=== PATIENT | male | born 1995 | race Caucasian/White ===

== ENCOUNTER 2021-03-14 12:48 | Emergency (ER) | payer OTHER ==
[~2021-03-14] VITALS: Ht 175.3 cm; Wt 60.8 kg
[2021-03-14 12:48] VITALS: BP 128/73
[2021-03-14] MEDS ORDERED: DOCU-141 PO (13:43)
[2021-03-14] MEDS ORDERED: HYDR30CR79 TP (13:43)
--- NOTE | 2021-03-14 13:49 | NUR ---
Patient discharged to home in stable condition. Written and verbal after care instructions given. Patient verbalizes understanding of instruction. Pt ambulatory with a steady gait
[2021-03-16] MEDS ORDERED: METRONIDAZOLE 500MG/ NS 100ML 100 ML IV ONE (03:30)
[2021-03-16] MEDS ORDERED: CIPROFLOXACIN IV RTU 200 ML IV ONE (03:30)
[2021-03-16] MEDS ORDERED: MORPHINE SULFATE INJ 4 MG/ML DISP.SYRIN ONE (03:31)
== END 2021-03-14 13:50 | disposition home or self-care (01) ==
LOC: ER 13:01
DX: K64.9 Unspecified hemorrhoids (principal)
CPT/HCPCS: J0744; J2270

== ENCOUNTER 2021-03-16 01:22 | Inpatient (IN) | payer OTHER ==
[~2021-03-16] VITALS: Ht 175.3 cm; Wt 59.0 kg
[~2021-03-16 01:22] MED LIST: DOCU-141 PO; HYDR30CR79 TP
--- NOTE | 2021-03-16 01:38 | NUR ---
PT BIBS FOR C/O RECTAL PAIN. WAS SEEN AT [facility] ER FOR HEMORRHOID RECENTLY +LOWER ABD PAIN. PT RATES PAIN 8/10 WHEN BEINIG TOUCHED AROUND HEMORRHOID AREA. PT ALERT ASYMTPAOMTIC AND ORIENTED X3.
--- NOTE | 2021-03-16 01:40 | NUR ---
BLOOD TAKEN AND SENT TO LAB.
[2021-03-16] MEDS ORDERED: MORPHINE SULFATE INJ 4 MG/ML DISP.SYRIN ONE (01:46)
[2021-03-16 01:55] LABS: BASOPHILS % (AUTO) 0.3 % (0.0-2.0); EOSINOPHILS % (AUTO) 0.6 % (0.0-6.0); HEMATOCRIT 38 % (39-51); HEMOGLOBIN 12.4 g/dL (13.5-17.5); LYMPHOCYTES # (AUTO) 1.8 K/uL (0.8-4.8); LYMPHOCYTES % (AUTO) 16.1 % (20.0-44.0); MEAN CORPUSCULAR HGB CONC 33 g/dl (31.0-36.0); MEAN CORPUSCULAR VOLUME 80 fL (80-96); MONOCYTES # (AUTO) 0.8 K/uL (0.1-1.30); MONOCYTES % (AUTO) 6.8 % (2.0-12.0); NEUTROPHILS # (AUTO) 8.5 K/uL (1.8-8.9); NEUTROPHILS % (AUTO) 76.2 % (43.0-81.0); PLATELET COUNT (AUTO) 271 K/uL (150-450); RED BLOOD CELL COUNT(AUTO) 4.71 MIL/uL (4.5-6.0); WHITE BLOOD COUNT (AUTO) 11.2 K/uL (4.3-11.0)
[2021-03-16] MEDS ORDERED: IOHEXOL-300 100 ML VIAL IV ONE (01:58)
[2021-03-16] MEDS ORDERED: IV NS 0.9% 250 ML IV ONE (01:59)
[2021-03-16] MEDS ORDERED: MORPHINE SULFATE INJ 2 MG/ML DISP.SYRIN IV ONE ×2 (02:00→03:30)
[2021-03-16 02:09] LABS: CALCIUM, SERUM 9.2 mg/dL (8.5-10.1); CREATININE 1.2 mg/dL (0.6-1.3); POTASSIUM 3.9 mmol/L (3.5-5.1)
--- NOTE | 2021-03-16 02:19 | NUR ---
taken to radiology
--- NOTE | 2021-03-16 02:20 | NUR ---
Chun wagoner in [facility] - 03/16/21 at 0220 by REGI pt going to ct.
--- NOTE | 2021-03-16 02:31 | NUR ---
PATIENT RETURNED FROM CT
[2021-03-16] MEDS ORDERED: FLAGYL/NS RTU 500 MG/100 ML PIGGYBACK IV ONE (03:30)
--- NOTE | 2021-03-16 03:37 | NUR ---
MRSA SWAB COLLECTED AND SENT TO LAB. PATIENT'S BELONGINGS LIST DONE.
[2021-03-16] MEDS: CIPROFLOXACIN IV RTU 400 MG in PREMIX 1 EA IV SCH ×2 (04:39→04:40)
[2021-03-16] MEDS ORDERED: ONDANSETRON HCL/PF 4 MG/2 ML VIAL IVP PRN (07:00)
[2021-03-16] MEDS ORDERED: ACETAMINOPHEN 325 MG TABLET PO PRN (07:00)
[2021-03-16] MEDS ORDERED: MORPHINE SULFATE INJ 2 MG/ML DISP.SYRIN IV PRN (07:00)
--- NOTE | 2021-03-16 07:47 | NUR ---
NURSING SUP GAVE 314.
--- NOTE | 2021-03-16 07:48 | NUR ---
REPORT GIVEN TO JOSE A BERRY FOR MONIQUE
[2021-03-16 08:00] VITALS: BP 118/64
--- NOTE | 2021-03-16 08:12 | NUR ---
m/s seam finisher: notes c/o 10/10 rectal pain, medicated with morphine 4mg ivp by rn. instructed to call for assistance. will continue to monitor.
--- NOTE | 2021-03-16 08:30 | NUR ---
m/s name plate stamper: notes dr. anton notified and made aware re: positive covid test 14 days ago with negative rapid test today and 4 days ago with no new order. pt is asymptomatic. cn aware. will continue to monitor.
--- NOTE | 2021-03-16 08:42 | NUR ---
m/s nurse's assistant: notes pt verbalized relief of pain. no s/s or resp. distress noted. will continue to monitor.
--- NOTE | 2021-03-16 08:54 | NUR ---
m/s ink grinder: notes arpi (infection control) notified and made aware re: positive covid test 14 days ago with negative rapid test today and 4 days ago.
[2021-03-16] MEDS: DOCUSATE SODIUM 100 MG CAPSULE PO SCH ×2 (09:05→17:19)
[2021-03-16] MEDS: PANTOPRAZOLE 40 MG TABLET.DR PO SCH (09:05)
--- NOTE | 2021-03-16 10:25 | NUR ---
m/s ticket machine operator: md visit dr. anton at bedside with verbal order to increase his morphine to 4mg ivp q 2 hours as needed. order read back and carried out. dr. anton notified dr. hernandez (surgeon). pt aware of plan of care.
[2021-03-16] MEDS: MORPHINE SULFATE INJ 2 MG/ML DISP.SYRIN IV PRN ×4 (10:44→19:38)
--- NOTE | 2021-03-16 10:44 | NUR ---
m/s stores assistant: notes c/o 10/10 rectal pain, medicated with morphine 4mg ivp with zofran 4mg ivp by rn. instructed to call for assistance. will continue to monitor.
--- NOTE | 2021-03-16 11:14 | NUR ---
m/s water well driller: notes pt dozing on and off. no s/s of resp. distress noted. will continue to monitor.
[2021-03-16] MEDS: PIPERACILLIN /TAZOBACTAM 3.375 G in IV D5W 50 ML IV SCH ×2 (11:49→18:18)
--- NOTE | 2021-03-16 12:38 | NUR ---
m/s refueling ramp attendant: notes c/o 10/10 rectal pain, medicated with morphine 4mg ivp. instructed to call for assistance. will continue to monitor.
--- NOTE | 2021-03-16 14:08 | NUR ---
m/s concrete pipe maker: notes in bed with eyes close. resp. even and unlabored. no s/s of resp. distress noted. will continue to monitor.
--- NOTE | 2021-03-16 15:00 | NUR ---
m/s make up arranger: surgeon consult seen and examined by sana (keon) at this time. will continue to monitor.
--- NOTE | 2021-03-16 15:44 | NUR ---
m/s splitting machine operator helper: notes consent obtained from pt re: Incision and drainage of perianal abscess to be done by dr. maloney at bedside. pt verbalized understanding.
[2021-03-16 16:00] VITALS: BP 130/73
[2021-03-16] MEDS ORDERED: LIDOCAINE 2%-EPI 1:100,000 30 ML VIAL TP ONE (16:00)
--- NOTE | 2021-03-16 16:52 | NUR ---
m/s quality systems manager: notes c/o 10/10 rectal pain, medicated with morphine 4mg ivp. instructed to call for assistance. will continue to monitor.
--- NOTE | 2021-03-16 17:22 | NUR ---
m/s can maker: notes verbalized relief of rectal pain, awaiting for surgeon to do i & d. supplies at bedside.
--- NOTE | 2021-03-16 19:00 | NUR ---
m/s grinding room supervisor: notes report given to rebekah (james) for continuity of care.
[2021-03-16 20:00] VITALS: BP 111/56
[2021-03-16] MEDS ORDERED: HYDROMORPHONE 1 MG/1 ML DISP.SYRIN IV ONE (20:00)
[2021-03-16] MEDS ORDERED: KETOROLAC TROMETHAMINE INJ 30 MG/ML VIAL IV ONE (20:00)
[2021-03-16] MEDS ORDERED: KETOROLAC TROMETHAMINE INJ 30 MG/ML VIAL IM ONE (20:00)
--- NOTE | 2021-03-16 20:10 | NUR ---
Patient in his bed alert and orientated X4 Speech clear aware of having the IND of his perirectal abcess done at the bedside by MD White consent is signed MD White at the bedside explainning what he is going to do patient turned to his right side pt prepped by the MD Medicated with Dilaudid 1 mg at 2009 medicated with Toradol 30 mg Iv per Md White pulse ox on the patient sats98 - 100% patient wide awake and talking laughing with the MD Patient tolartaed the procedure w/o complication noted MD WHITE packed the wound and tapped to the buttock spoke to the patients about wound care when he goes home. will monitor the patient patient was injected with LIDOCAINE at the abcess site
[2021-03-16 22:21] VITALS: BP 111/56
[2021-03-17] MEDS: PIPERACILLIN /TAZOBACTAM 3.375 G in IV D5W 50 ML IV SCH ×4 (00:31→18:10)
[2021-03-17 06:09] LABS: EOSINOPHILS % (AUTO) 0.3 % (0.0-6.0); HEMATOCRIT 35 % (39-51); HEMOGLOBIN 11.4 g/dL (13.5-17.5); LYMPHOCYTES # (AUTO) 1.6 K/uL (0.8-4.8); LYMPHOCYTES % (AUTO) 19.8 % (20.0-44.0); MEAN CORPUSCULAR HGB CONC 33 g/dl (31.0-36.0); MEAN CORPUSCULAR VOLUME 80 fL (80-96); MONOCYTES # (AUTO) 1.4 K/uL (0.1-1.30); MONOCYTES % (AUTO) 18.3 % (2.0-12.0); NEUTROPHILS # (AUTO) 4.9 K/uL (1.8-8.9); NEUTROPHILS % (AUTO) 61.6 % (43.0-81.0); PLATELET COUNT (AUTO) 222 K/uL (150-450); RED BLOOD CELL COUNT(AUTO) 4.32 MIL/uL (4.5-6.0); WHITE BLOOD COUNT (AUTO) 7.9 K/uL (4.3-11.0)
--- NOTE | 2021-03-17 06:21 | NUR ---
S/P IND rectal abcess last night at 1999 by Jd QUIROS rectal dressing CDI Patient was given morphine 30 minutes prior then followed with dilaudid and toradol 3omg toward the end of the procedure tolerated procedure well small amount bleeding done at the bedside. slept thru the night not asking to be medicatd for pain dressing remains dry and intact this AM Antibiotic infused w/ problem
[2021-03-17 06:43] LABS: CREATININE 1.2 mg/dL (0.6-1.3); MAGNESIUM 1.9 mg/dL (1.8-2.4); PHOSPHORUS 4.3 mg/dL (2.5-4.9); POTASSIUM 3.9 mmol/L (3.5-5.1)
[2021-03-17 08:00] VITALS: BP 99/53
--- NOTE | 2021-03-17 08:00 | NUR ---
RECEIVED PT. IN AM ALERT AND ORIENTED X4,NO COMPLAINTS BUTTOCKS DRSG DRY AND INTACT.
[2021-03-17] MEDS: DOCUSATE SODIUM 100 MG CAPSULE PO SCH ×2 (09:28→18:10)
[2021-03-17] MEDS: PANTOPRAZOLE 40 MG TABLET.DR PO SCH (09:28)
[2021-03-17] MEDS: DAKINS QUARTER STRENGTH (0.125%) 480 ML BOTTLE TOP SCH (09:29)
[2021-03-17] MEDS: MORPHINE SULFATE INJ 2 MG/ML DISP.SYRIN IV PRN ×2 (13:38→21:40)
--- NOTE | 2021-03-17 14:00 | NUR ---
ENCOURAGED TO DRINK MORE FLUIDS,LOW OUTPUT.VS STABLE. TOLERATED WD PACKING,MED X2 WITH PAIN INJECTION.
--- NOTE | 2021-03-17 15:00 | NUR ---
DR. WHITE'S GATE AGENT IN AND PLANS TO ORDER HOME HEALTH FOR DRESSING CHG.
[2021-03-17 16:00] VITALS: BP 111/64
[2021-03-17 20:00] VITALS: BP 109/56
--- NOTE | 2021-03-17 20:00 | NUR ---
MS RN OPENING NOTES PATIENT RESTING IN BED, ALERT/ORIENTED X 4, PT ABLE TO MAKE NEEDS KNOWN. PT STABLE ON RA, NO S/S OF DISTRESS OR SOB NOTED, BREATHING EVEN AND UNLABORED. PATIENT DENIES PAIN AT THIS TIME. RIGHT ARM IV ACCESS INTACT AND PATENT, SALINE LOCKED. PATIENT STATES HE HAS NO NEEDS AT THIS TIME. SAFETY MEASURES IN PLACE: CALL LIGHT WITHIN REACH, SIDE RAILS UP X 2, TABLE WITHIN REACH, BED LOCKED IN LOW POSITION. WILL CONTINUE TO MONITOR THROUGHOUT SHIFT.
[2021-03-18] MEDS: PIPERACILLIN /TAZOBACTAM 3.375 G in IV D5W 50 ML IV SCH ×3 (00:02→12:45)
[2021-03-18] MEDS: MORPHINE SULFATE INJ 2 MG/ML DISP.SYRIN IV PRN ×7 (02:19→18:37)
[2021-03-18 06:28] LABS: BASOPHILS % (AUTO) 0.5 % (0.0-2.0); EOSINOPHILS % (AUTO) 1.8 % (0.0-6.0); HEMATOCRIT 34 % (39-51); HEMOGLOBIN 11.4 g/dL (13.5-17.5); LYMPHOCYTES # (AUTO) 1.2 K/uL (0.8-4.8); LYMPHOCYTES % (AUTO) 16.8 % (20.0-44.0); MEAN CORPUSCULAR HGB CONC 34 g/dl (31.0-36.0); MEAN CORPUSCULAR VOLUME 80 fL (80-96); MONOCYTES # (AUTO) 0.6 K/uL (0.1-1.30); MONOCYTES % (AUTO) 8.5 % (2.0-12.0); NEUTROPHILS # (AUTO) 5.1 K/uL (1.8-8.9); NEUTROPHILS % (AUTO) 72.4 % (43.0-81.0); PLATELET COUNT (AUTO) 248 K/uL (150-450); RED BLOOD CELL COUNT(AUTO) 4.28 MIL/uL (4.5-6.0)
--- NOTE | 2021-03-18 06:30 | NUR ---
MS RN NOTE PATIENT REPORTING UPSET STOMACH AND 2 EPISODES OF DIARRHEA[address] NOTIF[address]. EUBANKS WITH ORDER FOR IMODIUM 4MG QID PRN. ORDER READ BACK AND CONFIRMED. ORDER CARRIED OUT
[2021-03-18 06:39] LABS: CALCIUM, SERUM 8.6 mg/dL (8.5-10.1); CREATININE 1.2 mg/dL (0.6-1.3); MAGNESIUM 1.8 mg/dL (1.8-2.4); PHOSPHORUS 4.5 mg/dL (2.5-4.9); POTASSIUM 3.9 mmol/L (3.5-5.1)
--- NOTE | 2021-03-18 07:15 | NUR ---
MS RN OPENING NOTES RECEIVED PATIENT RESTING IN BED, ALERT/ORIENTED X 4, PT ABLE TO MAKE NEEDS KNOWN. PT STABLE ON RA, NO S/S OF DISTRESS OR SOB NOTED, BREATHING EVEN AND UNLABORED. PATIENT DENIES PAIN AT THIS TIME. RIGHT ARM IV ACCESS INTACT AND PATENT, SALINE LOCKED. WITH DRESSING ON RIGHT PERIANAL AREA, DRY AND INTACT. PATIENT STATES THAT HE IS IN PAIN BECAUSE HE GETS THE URGE TO GO TO THE BATHROOM AND THAT HE WIPES THE AREA OF THE WOUND WELL. PATIENT STATES HE HAS NO NEEDS AT THIS TIME. SAFETY MEASURES IN PLACE: CALL LIGHT WITHIN REACH, SIDE RAILS UP X 2, TABLE WITHIN REACH, BED LOCKED IN LOW POSITION. WILL CONTINUE TO MONITOR THROUGHOUT SHIFT.
[2021-03-18 08:00] VITALS: BP 116/67
[2021-03-18] MEDS ORDERED: LOPERAMIDE HCL (2 MG CAP) 2 MG CAPSULE PO PRN (08:00)
[2021-03-18] MEDS: PANTOPRAZOLE 40 MG TABLET.DR PO SCH (08:38)
[2021-03-18] MEDS: DOCUSATE SODIUM 100 MG CAPSULE PO SCH (09:00)
[2021-03-18] MEDS ORDERED: NAPR-1164 PO (09:57)
[2021-03-18] MEDS ORDERED: LEVO500T90 PO (09:57)
[2021-03-18] MEDS ORDERED: METR500T PO (09:57)
[2021-03-18] MEDS: DAKINS QUARTER STRENGTH (0.125%) 480 ML BOTTLE TOP SCH (12:43)
--- NOTE | 2021-03-18 14:00 | NUR ---
MS RN NOTE PATIENT IS FOR DISCHARGE ORDERED. HEALTH TEACHING DONE REGARDING DISCHARGE ORDERS AND INSTRUCTIONS. VERBALIZED UNDERSTANDING AND APPRECIATION. WOUND CARE DONE SEVERAL TIMES PATIETN WOULD ACCIDENTALLY WIPE IT OFF. IN STABLE CONDITION, COMFORT MEASURES PROVIDED. PATIENT STILL ASKED FOR PAIN MEDICATION, MD AWARE. ENCOURAGED TO DO RELAXATION TECHNIQUES. IN STABLE CONDITION. WILL CONTINUE TO MONITOR PATIENT.
[2021-03-18 16:00] VITALS: BP 116/67
--- NOTE | 2021-03-18 19:00 | NUR ---
MS RN CLOSING NOTES RECEIVED PATIENT RESTING IN BED, ALERT/ORIENTED X 4, PT ABLE TO MAKE NEEDS KNOWN. PT STABLE ON RA, NO S/S OF DISTRESS OR SOB NOTED, BREATHING EVEN AND UNLABORED. PATIENT DENIES PAIN AT THIS TIME. WITH DRESSING ON RIGHT PERIANAL AREA, DRY AND INTACT. PATIENT ON PAIN MANAGEMENT. PATIENT IS FOR ORDERED. AWAITING PICK-UP BY FRIEND FOR DISCHARGE. PATIENT STATES HE HAS NO NEEDS AT THIS TIME. SAFETY MEASURES IN PLACE: CALL LIGHT WITHIN REACH, SIDE RAILS UP X 2, TABLE WITHIN REACH, BED LOCKED IN LOW POSITION. WILL ENDORSE TO NEXT SHIFT FOR CONTINUITY OF CARE.
[2021-03-18] MEDS ORDERED: MORPHINE SULFATE INJ 4 MG/ML DISP.SYRIN IV PRN (19:30)
--- NOTE | 2021-03-18 20:00 | NUR ---
MS RN NOTES AWAKE & RESPONSIVE. NOT IN ANY DISTRESS. NO SOB NOTED. DENIES ANY PAIN OR DISCOMFORT AT THIS TIME. PT LEFT FACILITY VIA PRIVATE CAR. ASSISTED DOWNSTAIRS BY ENGINEER INTERN. DISCHARGE INSTRUCTIONS PROVIDED BY AM RN. BELONGINGS SENT HOME WITH PT. PT LEFT THE FACILITY IN STABLE CONDITION. VSS. AFEBRILE.
== END 2021-03-18 20:00 | disposition home health service (06) | DRG 348 ==
LOC: ER 01:23 → TELE 07:42 → MED 08:06
PROVIDERS: ADMIT Nurse Practitioner Acute Care; ATTEND Nurse Practitioner Acute Care
PROC: 0D9Q0ZZ Drainage of Anus, Open Approach (ICD-10-PCS; principal; 2021-03-16)
DX: K61.0 Anal abscess (principal); L02.215 Cutaneous abscess of perineum; K64.9 Unspecified hemorrhoids; Z20.822 Contact with and (suspected) exposure to COVID-19; Z86.16 Personal history of COVID-19; Z87.891 Personal history of nicotine dependence
CPT/HCPCS: 36415; 80048-TC; 83735-TC; 84100-TC; 85025-TC; 87070-TC; 87081-TC; 87186-TC; A4216; A6253; A6407; C9803; G0378; J0744; J1170; J1885; J2270; J2405; J2543; J3490; J7050; J7060; Q9967